=== PATIENT | male | born 1975 | race Caucasian/White ===

== ENCOUNTER 2017-08-03 17:56 | Emergency (ER) | payer MEDICAID, SELFPAY ==
[2017-08-03 17:58] VITALS: BP 116/68; PULSE 59; RESP 17; TEMP 37.1; O2SAT 97; BMI 28.5
--- NOTE | 2017-08-03 18:19 | ED.VISSUMM ---
- ER Visit Summary Date of Service: 08/03/17 Chief Complaint: Right shoulder pain History of Present Illness: The patient is a 42 M presents with right shoulder pain. Patient has a history of chronic right shoulder pain. He was previously in pain management. He states he was in a disagreement with the doctor and no longer goes to pain management. He states 4 days ago he was climbing a tree and swinging and this worsened his pain. He has been taking ibuprofen and Tylenol at home with no relief. Denies other complaints. Physical Examination: Vitals are stable. Patient is afebrile. Alert no acute distress. HEENT exam is unremarkable. Neck is supple. Lungs are clear and equal bilaterally. Heart is regular rate and rhythm. Extremities right anterior shoulder tenderness. AFROM. No erythema or warmth. Normal distal pulse Skin is warm and dry. No focal neurologic deficit. Remainder of exam is unremarkable. Emergency Department Course and Treatment: Patient is given Toradol, Norflex IM. Right shoulder x-ray shows no acute process. Patient is given prescription for Naprosyn and Flexeril. He is advised to follow-up with his primary care physician. Advised to return to ED for worsening complaints. Disposition: Discharge home Impression: Acute on chronic right shoulder pain This note was generated with [employer] dictation software. It may contain incorrect words, spelling, and punctuation that were not noted in review of the chart prior to signing ED Disposition - Plan for ED Patient: Chief Complaint: Upper Extremity Injury Referrals: Mega Hart [Primary Care Provider] -
--- NOTE | 2017-08-03 18:20 | RAD_ITS ---
STUDY: X-RAY - RIGHT SHOULDER REASON FOR EXAM: Male, 42 years old. Injury, pain. TECHNIQUE: 4 view(s) of the shoulder. COMPARISON: None. FINDINGS: Normal glenohumeral articulation. Normal acromioclavicular joint. Normal acromion. Subcortical cystic degenerative change and adjacent focal sclerosis in the greater tubercle of the humeral head. Normal visualized scapula. The soft tissue structures are unremarkable. There is no demonstrated fracture. Normal visualized pulmonary apex. RAD/Shoulder min 2 Views IMPRESSION: No acute fracture of the right shoulder. Electronically Signed: Terrance Mireles MD at 19:07 EDT , Service support ,
[2017-08-03] MEDS: Ketorolac 60 MG/2 ML Vial IM (18:40)
--- NOTE | 2017-08-03 19:15 | ED.DEP ---
ED Disposition - Plan for ED Patient: Chief Complaint: Upper Extremity Injury Instructions: ED Sprain Shoulder Prescriptions: Naproxen [Naprosyn] 500 mg PO BID PRN #20 tablet Cyclobenzaprine [Flexeril] 10 mg PO TID PRN #20 tablet PRN Reason: Muscle Spasm Referrals: Mega Hart [Primary Care Provider] -
[2017-08-03 19:25] VITALS: RESP 18
== END 2017-08-03 19:26 | disposition home or self-care (01) ==
PROVIDERS: Emergency Provider Emergency Medicine
DX: M25.511 Pain in right shoulder (principal); G89.29 Other chronic pain; Z72.0 Tobacco use
CPT/HCPCS: 73030; 96372; 99282

== ENCOUNTER 2017-09-09 21:22 | Emergency (ER) | payer MEDICAID, SELFPAY ==
[2017-09-09 21:24] VITALS: BP 130/80; PULSE 72; RESP 15; TEMP 36.3; BMI 28.8
--- NOTE | 2017-09-09 21:39 | RAD_ITS ---
STUDY: X-RAY - RIGHT FOOT CLINICAL: Male, 42 years old. Pain TECHNIQUE: 3 view(s) of the foot. COMPARISON: None. FINDINGS: There is no evidence of fracture or dislocation. There are no significant degenerative changes. There are no radiodense foreign bodies. RAD/Foot min 3 Views IMPRESSION: No fracture or dislocation. Electronically Signed: Cornelius Navarro, at 22:37 EDT Tel , Service support ,
--- NOTE | 2017-09-09 21:42 | ED.DCSUM_ITS ---
- ER Visit Summary Date of Service: 09/09/17 Chief Complaint: Right foot pain History of Present Illness: The patient is a 42 M states he rolled his right foot stepping off of a truck earlier today. He has pain and swelling to the lateral portion of his right foot. He states he is hobbling when trying to walk. He did take ibuprofen prior to arrival. Physical Examination: Vital signs unremarkable. Patient sitting upright in bed no acute distress. Heart is regular. Lower extremity examination reveals tenderness palpation with mild edema and ecchymosis of the lateral surface of the right foot. There is mild tenderness along the proximal fifth metatarsal. There is no tenderness at the ankle or knee. He has strong distal pulses with normal sensation. He has good range of motion. Test Results: Right foot x-rays reveal no evidence of acute fracture per my reading. Emergency Department Course and Treatment: Ben wrap was applied to the right foot. He is advised to ice and elevate. He will continue ibuprofen as needed. Treatment Plan: [] Disposition: Discharge Impression: Right foot sprain This note was generated with [employer] dictation software. It may contain incorrect words, spelling, and punctuation that were not noted in review of the chart prior to signing ED Disposition - Plan for ED Patient: Chief Complaint: Lower Extremity Injury Referrals: Mega Hart MD [Primary Care Provider] -
--- NOTE | 2017-09-09 22:25 | ED.DEP ---
ED Disposition - Plan for ED Patient: Disposition: Home or Assisted Living Chief Complaint: Lower Extremity Injury Instructions: ED Sprain Foot Referrals: Mega Hart MD [Primary Care Provider] - 1 Week if not improving
== END 2017-09-09 22:33 | disposition home or self-care (01) ==
PROVIDERS: Emergency Provider Emergency Medicine
DX: S93.601A Unspecified sprain of right foot, initial encounter (principal); Z72.0 Tobacco use; X50.1XXA Overexertion from prolonged static or awkward postures, initial encounter; Y93.89 Activity, other specified; Y92.89 Other specified places as the place of occurrence of the external cause; Y99.8 Other external cause status
CPT/HCPCS: 73630; 99282